=== PATIENT | female | born 1975 | race Two or more races ===

== ENCOUNTER 2017-06-29 21:26 | Emergency (ER) | payer OTHER ==
[~2017-06-29] VITALS: Ht 162.6 cm; Wt 74.8 kg
[~2017-06-29 21:26] MED LIST: INTEGRA PLUS C1 EACH PO; IRON1TAB4 PO
[2017-06-29] MEDS ORDERED: TUSSIONEX PENN115 ML PO (22:38)
== END 2017-06-29 23:04 | disposition home or self-care (01) ==
LOC: ER 21:26
DX: R05 Cough (principal)